=== PATIENT | male | born 1995 | race Caucasian/White ===

== ENCOUNTER 2025-02-13 06:46 | Emergency (ER) | payer BC, SELFPAY ==
[2025-02-13 06:47] VITALS: BP 141/88; PULSE 84; RESP 12; TEMP 37.1; O2SAT 100; BMI 23.6
--- NOTE | 2025-02-13 07:08 | ED.VIS.DYS ---
HPI History of Present Illness Chief Complaint: Shortness of Breath PFSH PFS Medical History no medical history Home Medications ?Medication ?Instructions ?Recorded ?Last Taken ?Type NK 02/13/25 Unknown History Allergy/AdvReac Type Severity Reaction Status Date / Time doxycycline (From Vibramycin) Allergy PT UNSURE Verified 02/13/25 06:51 OF REACTION Surgical History no surgical history Social History Smoking Status: Current some day smoker tobacco type: cigarettes EXAM Physical Exam Const Vital Signs: 02/13/25 06:47 02/13/25 07:29 Temperature 98.8 F Temperature Source Oral Pulse Rate 84 Respiratory Rate 12 Respiratory Effort Normal Respiratory Depth Normal Respiratory Pattern Normal Blood Pressure 141/88 H Blood Pressure Mean 105 Pulse Ox 100 Oxygen Delivery Method Room Air Room Air MDM MDM MDM Narrative Medical decision making narrative: HISTORY OF PRESENT ILLNESS: 29-year-old male presents for shortness of breath. Notes 6 days of being sick. States he is attempted to work out this morning and had a hard time catching his breath. He states usually start his workout with cardio, speed and agility ladders but cannot complete the usual mount of ladders because of difficulty breathing. He also notes he was doing bench press. He notes after 3 sets he became more short of breath. He notes he has been around sick contacts. Notes a teammate at work has been sick. He notes body aches, chills, dry cough. Denies leg swelling. Denies bleeding diathesis. Denies chest pain at this time. The patient denies recent surgery in the last 4 weeks or immobilization in the last 3 days, denies previous diagnosis of DVT or PE, hemoptysis, unilateral leg swelling or malignancy with treatment the last 6 months or palliative. No estrogen use noted. REVIEW OF SYSTEMS: Pertinent positives: Viral URI symptoms, dyspnea Pertinent negatives: Syncope, chest pain, leg swelling PHYSICAL EXAM: Nursing triage notes reviewed, Vital signs reviewed Constitutional: please see mdm HENT: MMM, no tonsilar exudates Neck: No stridor, no JVD, full neck ROM Lungs: Clear to auscultation, No wheezing or rales. No increased work of breathing, no conversational dyspnea, no accessory muscle use, no nasal flaring. No respiratory distress noted Heart: Regular rate and rhythm, No murmurs, No rubs and No gallops, 2+ distal pulses (radial, femoral, posterior tibial) in all extremities Extremities: No edema MEDICAL DECISION MAKING: Chief Complaint: Shortness of breath External records reviewed: Reviewed prior medical records. Reviewed prior cardiovascular testing Factors affecting care: none Social determinants of health: Positive tobacco use History obtained from others: none Consults: none [facility] Narrative: Patient was initially hemodynamically stable, afebrile and nontoxic appearing. Exam without focal cardiopulmonary normalities. No sign of respiratory distress. Patient was breathing comfortably. Healthy appearing no acute distress although patient complained of subjective dyspnea. He is saturating 100% on room air, his respiratory rate was 12. He is speaking full sentences with a normal to high elie. I considered the following differential diagnosis: Pneumonia, COVID, flu, RSV ALL IMAGES (IF OBTAINED) HAVE BEEN PERSONALLY REVIEWED AND INTERPRETED BY MYSELF. I have personally reviewed the patient's chest x-ray. Chest x-ray is unremarkable for pulmonary edema, pneumothorax, pneumonia or focal cardiopulmonary abnormality. COVID RSV flu was positive for flu A. The likely etiology of the patient's complaint is influenza. Return precautions were discussed. The patient and/or family, caregivers express understanding. The patient and/or family, caregivers agrees with the plan. Shared decision making: I will have a discussion with the patient and or visitors regarding risk/benefits of further testing or admission. They will be made aware of of the risk/benefits inherent in this decision they will be given the opportunity to voice understanding. Total critical care time today provided was at least 0 minutes. This excludes separately billable procedures. Critical care time (if documented) is secondary to the patient having high probability of clinically significant/life threatening deterioration in the patient's condition which required my urgent intervention. Impression: 1. Influenza A Dispo: Discharge home This note was generated with [employer] dictation software. It may contain incorrect words, spelling, and punctuation that were not noted in review of the chart prior to signing. Radiography Diagnostic Testing: Clinical Impression(s) from Imaging Studies Chest X-Ray 02/13/25 07:33 IMPRESSION: NEGATIVE CHEST Reading Location: [place] [id number] Discharge Plan Triage Chief Complaint: Shortness of Breath ED Provider: Kirby Gabriel Dx/Rx/DC Orders Instructions: ED URI, Viral, No Abx (Adult) Prescriptions: No Action NK Stand Alone Forms: ED Work / School Excuse Primary Care Provider: Care Physician,No Primary Referrals: Jerry Meléndez MD [Med Staff - School Resource Officer] - Activity Restrictions/Additional Instructions: Thank you for trusting us with your care today! Your chest x-ray did not show signs of bacterial pneumonia. You are likely suffering from a viral upper respiratory tract infection which could include infectious agent such as COVID, RSV, flu as well as a myriad of other viruses. These viruses are treated with anti-inflammatories as below. And time. Typically resolve in 7 to 14 days. Please take Tylenol (2 pills, 650 mg), ibuprofen (2 pills, 400 mg) every 6 hours as needed for pain and fever control. Please return to the emergency department if your symptoms change or worsen. Specifically develop chest pain, if you lose consciousness, develop leg swelling, if you cough up blood. Please follow with your primary care physician for further outpatient evaluation and management. Print Language: Albanian Disposition Disposition: Home, Self Care
[2025-02-13 07:29] VITALS: O2SAT 97
--- NOTE | 2025-02-13 07:33 | RAD_ITS ---
PROCEDURE: CHEST PA AND LATERAL 02/13/2025 02/13/2025 REASON FOR EXAM: SOB TECHNIQUE: Frontal and lateral views of the chest. COMPARISON: None FINDINGS: EKG electrodes are seen. The heart size is normal. The mediastinal contour is unremarkable. The lungs are clear. RAD/Chest PA and Lateral IMPRESSION: NEGATIVE CHEST Reading Location: [place] [id number]
[2025-02-13 08:39] VITALS: BP 131/74; PULSE 58; RESP 20; O2SAT 98
== END 2025-02-13 08:45 | disposition home or self-care (01) ==
PROVIDERS: Emergency Provider Emergency Medicine; Visit Provider Emergency Medicine
DX: J10.1 Influenza due to other identified influenza virus with other respiratory manifestations (principal); R06.02 Shortness of breath; F17.200 Nicotine dependence, unspecified, uncomplicated
CPT/HCPCS: 71046; 87631; 99282